=== PATIENT | male | born 1965 | race Two or more races ===

== ENCOUNTER 2017-05-22 20:44 | Emergency (ER) | payer OTHER ==
[~2017-05-22] VITALS: Ht 160 cm; Wt 61.2 kg
[~2017-05-22 20:44] MED LIST: CYCL10 PO; IBUP600 PO; Norco 5-325 Ta1 EACH PO; TOBR.3OPSO OP
[2017-05-22] MEDS ORDERED: FUNGI NAIL TOP (22:42)
== END 2017-05-22 23:00 | disposition home or self-care (01) ==
LOC: ER 20:44
DX: B35.1 Tinea unguium (principal); Z79.899 Other long term (current) drug therapy
CPT/HCPCS: 99282

== ENCOUNTER 2019-03-23 17:05 | Emergency (ER) | payer OTHER ==
[~2019-03-23] VITALS: Ht 160 cm; Wt 59.0 kg
[~2019-03-23 17:05] MED LIST changes: +FUNGI NAIL TOP
[2019-03-23] MEDS ORDERED: IBUP600 PO (18:01)
[2019-03-23] MEDS ORDERED: PENVK500 PO (18:01)
== END 2019-03-23 18:21 | disposition home or self-care (01) ==
LOC: ER 17:05
DX: K04.7 Periapical abscess without sinus (principal); K02.9 Dental caries, unspecified
CPT/HCPCS: 99283; A9270-GY

== ENCOUNTER 2020-06-02 19:14 | Emergency (ER) | payer OTHER ==
[~2020-06-02] VITALS: Ht 160 cm; Wt 63.5 kg
[~2020-06-02 19:14] MED LIST changes: +PENVK500 PO
[2020-06-02] MEDS ORDERED: HYDR1TAB94 PO (21:37)
[2020-06-02] MEDS ORDERED: SULTRIDS PO (21:37)
== END 2020-06-02 21:45 | disposition home or self-care (01) ==
LOC: ER 19:14
DX: L03.012 Cellulitis of left finger (principal)
CPT/HCPCS: 73140; 99283-25

== ENCOUNTER 2023-01-15 11:55 | Emergency (ER) | payer OTHER ==
[~2023-01-15] VITALS: Ht 160 cm; Wt 63.5 kg
[~2023-01-15 11:55] MED LIST changes: +HYDR1TAB94 PO; +SULTRIDS PO
[2023-01-15 12:20] VITALS: BP 125/85
[2023-01-15] MEDS ORDERED: NAPR500 PO (12:35)
[2023-01-15] MEDS ORDERED: PRED20 PO (12:35)
[2023-01-15] MEDS ORDERED: Voltaren100 GM TOP (12:35)
== END 2023-01-15 13:05 | disposition home or self-care (01) ==
LOC: ER 11:55
DX: M77.8 Other enthesopathies, not elsewhere classified (principal); F17.200 Nicotine dependence, unspecified, uncomplicated
CPT/HCPCS: 73030; 99283-25

== ENCOUNTER 2023-02-19 13:28 | Emergency (ER) | payer OTHER ==
[~2023-02-19] VITALS: Ht 160 cm; Wt 58.1 kg
[~2023-02-19 13:28] MED LIST changes: +NAPR500 PO; +PRED20 PO; +Voltaren100 GM TOP
[2023-02-19 15:38] LABS: BASOPHILS ABSOLUTE AUTO 0.02 K/mm3 (0.00-0.23); BASOPHILS PERCENT AUTO 0 % (0-2); EOSINOPHILS PERCENT AUTO 2 % (0-6); Hematocrit 38.2 % (37.0-53.0); Hemoglobin 12.4 g/dL (13.5-17.5); IMMATURE GRAN ABSOLUTE AUTO 0.01 K/mm3 (0.00-0.10); IMMATURE GRAN PERCENT AUTO 0 % (0-1); LYMPHOCYTES ABSOLUTE AUTO 1.88 K/mm3 (0.84-5.20); LYMPHOCYTES PERCENT AUTO 32 % (21-46); MONOCYTES ABSOLUTE AUTO 0.41 K/mm3 (0.16-1.47); MONOCYTES PERCENT AUTO 7 % (4-13); Mean Corpuscular HGB Conc 32.5 g/dL (31.5-36.5); Mean Corpuscular Volume 92 fL (80-100); Mean Platelet Volume 10.1 fL (9.1-12.4); NEUTROPHILS ABSOLUTE AUTO 3.49 K/mm3 (1.96-9.15); NEUTROPHILS PERCENT AUTO 59 % (41-73); Platelet Count 330 K/mm3 (150-400); RDW Coefficient Variation 14.3 % (11.7-14.2); RDW Standard Deviation 48.4 fL (35.1-46.3); Red Blood Cell Count 4.14 M/mm3 (4.30-5.90); White Blood Cell Count 5.91 K/mm3 (4.00-11.30)
[2023-02-19 16:06] LABS: Albumin, Blood 3.2 g/dL (3.4-5.0); Albumin/Globulin Ratio 0.8 (0.8-1.8); Bilirubin, Total 0.3 mg/dL (0.1-1.0); Bun/Creatinine Ratio 24.6 (12.0-20.0); Calcium, Blood 9.1 mg/dL (8.5-10.1); Creatinine, Blood 0.65 mg/dL (0.60-1.20); Globulin, Blood 3.8 g/dL (2.2-4.0); Potassium, Blood 4.8 mmol/L (3.5-5.5)
[2023-02-19 19:22] VITALS: BP 106/75
== END 2023-02-19 19:23 | disposition home or self-care (01) ==
LOC: ER 13:28
PROVIDERS: Emergency Medicine
DX: K29.70 Gastritis, unspecified, without bleeding (principal); K21.9 Gastro-esophageal reflux disease without esophagitis; F17.210 Nicotine dependence, cigarettes, uncomplicated; Z79.52 Long term (current) use of systemic steroids
CPT/HCPCS: 80053; 83690; 85025; 99284; A9270

== ENCOUNTER 2024-08-20 17:19 | Emergency (ER) | payer OTHER ==
[~2024-08-20] VITALS: Ht 157.5 cm; Wt 56.7 kg
[~2024-08-20 17:19] MED LIST changes: +AZIT250 PO
[2024-08-20] MEDS ORDERED: Doxycycline Hyclate 100 MG TAB PO ONE (21:15)
[2024-08-20] MEDS ORDERED: DOXY100 PO (21:16)
[2024-08-20] MEDS ORDERED: AMOX500 PO (21:17)
[2024-08-20] MEDS ORDERED: Amoxicillin 500 MG Cap PO ONE (21:20)
[2024-08-20 21:48] VITALS: BP 130/86
== END 2024-08-20 21:48 | disposition home or self-care (01) ==
LOC: ER 17:19
DX: J18.9 Pneumonia, unspecified organism (principal); Z79.2 Long term (current) use of antibiotics; Z87.891 Personal history of nicotine dependence
CPT/HCPCS: 71046; 99284-25; A9270